=== PATIENT | female | born 1980 | race Caucasian/White ===

== ENCOUNTER 2022-02-21 14:30 | Outpatient (CLI) | payer BC | END 2022-02-21 14:31 | disposition home or self-care (01) | LOC: CSHMAMMO 14:30 | PROVIDERS: ATTEND Obstetrics & Gynecology | DX: Z12.31 Encounter for screening mammogram for malignant neoplasm of breast (principal); Z80.3 Family history of malignant neoplasm of breast; Z98.82 Breast implant status | CPT/HCPCS: 77063; 77067 ==

== ENCOUNTER 2023-08-03 08:46 | Emergency (ER) | payer BC ==
[2023-08-03] MEDS ORDERED: Proparacaine 0.5% Opth 15 ML BOT ONE (09:11)
[2023-08-03] MEDS ORDERED: Fluorescein Opthalmic Strip ONE (09:12)
[2023-08-03] MEDS ORDERED: Erythromycin Base 0.5% Oint 1 GM TUBE ONE (09:44)
== END 2023-08-03 09:53 | disposition home or self-care (01) ==
LOC: CSHERS 08:46
DX: S05.01XA Injury of conjunctiva and corneal abrasion without foreign body, right eye, initial encounter (principal); W54.0XXA Bitten by dog, initial encounter
CPT/HCPCS: 99283